=== PATIENT | male | born 1970 ===

== ENCOUNTER 2022-05-01 22:16 | Emergency (ER) | payer OTHER ==
[2022-05-01 22:27] VITALS: BP 168/110; PULSE 77; RESP 16; TEMP 98.7; BMI 25.8
[2022-05-01] MEDS ORDERED: METHOCARBAMOL 750 MG TAB PO STA (22:43)
[2022-05-01] MEDS ORDERED: predniSONE 20 MG TABLET (UD) PO ONE (22:44)
[2022-05-01] MEDS ORDERED: KETOROLAC TROMETHAMINE 60 MG/2 ML VIAL IM ONE (22:44)
[2022-05-01] MEDS ORDERED: KETOROLAC TROMETHAMINE 60 MG/2 ML VIAL ONE (22:47)
[2022-05-01] MEDS ORDERED: predniSONE 20 MG TABLET (UD) ONE (22:47)
[2022-05-01] MEDS ORDERED: METHOCARBAMOL 500 MG TABLET ONE ×2 (22:48→22:50)
== END 2022-05-01 23:00 | disposition home or self-care (01) ==
LOC: FER 22:16
PROC: 3E023GC Introduction of Other Therapeutic Substance into Muscle, Percutaneous Approach (ICD-10-PCS; principal; 2022-05-01)
DX: M54.31 Sciatica, right side (principal); M54.32 Sciatica, left side
CPT/HCPCS: 99284-25